=== PATIENT | female | born 2000 | race Caucasian/White ===

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

== ENCOUNTER → 2022-09-02 | Outpatient (CLI) | payer OTHER ==
[2022-09-04 02:10] LABS: CHLAMYDIA TRACHOMATIS, NAA Negative (Negative)
[2022-09-09 13:09] LABS: HPV 16 Negative (Negative); HPV 18 Negative (Negative); HPV OTHER HR TYPES Positive (Negative)
== END ==
LOC: LAB SHORT 08:52 → LAB 08:52
PROVIDERS: Physician Assistant
DX: N89.8 Other specified noninflammatory disorders of vagina (principal)
CPT/HCPCS: 87070; 87205; 87491; 87591; 87624; 87625; 88175

== ENCOUNTER → 2022-09-02 | Outpatient (CLI) | payer OTHER | LOC: LAB 09:19 → LAB SHORT 09:19 | DX: N39.0 Urinary tract infection, site not specified (principal) | CPT/HCPCS: 87086 ==